=== PATIENT | female | born 1965 | race Caucasian/White ===

== ENCOUNTER 2019-02-16 10:23 | Emergency (ER) | payer MEDICAID ==
[~2019-02-16] VITALS: Ht 152.4 cm; Wt 73.0 kg
[2019-02-16 10:44] VITALS: Ht 152.4 cm; Wt 73.0 kg
[2019-02-16 13:03] VITALS: BP 144/88
== END 2019-02-16 13:03 | disposition home or self-care (01) ==
LOC: ED 10:23
DX: S61.213A Laceration without foreign body of left middle finger without damage to nail, initial encounter (principal); E11.9 Type 2 diabetes mellitus without complications; F32.9 Major depressive disorder, single episode, unspecified; W54.0XXA Bitten by dog, initial encounter; Y93.89 Activity, other specified; Y92.89 Other specified places as the place of occurrence of the external cause; Y99.8 Other external cause status
CPT/HCPCS: 90715

== ENCOUNTER 2019-02-19 14:20 | Emergency (ER) | payer MEDICAID ==
[~2019-02-19] VITALS: Ht 157.5 cm; Wt 32.7 kg
[2019-02-19 14:23] VITALS: BP 131/81; Ht 157.5 cm; Wt 32.7 kg
== END 2019-02-19 14:55 | disposition home or self-care (01) ==
LOC: ED 14:20
DX: S61.213D Laceration without foreign body of left middle finger without damage to nail, subsequent encounter (principal); E11.9 Type 2 diabetes mellitus without complications; F32.9 Major depressive disorder, single episode, unspecified; W54.0XXD Bitten by dog, subsequent encounter